=== PATIENT | female | born 1995 | race Hispanic/Latino ===

== ENCOUNTER 2019-04-24 14:37 | Emergency (ER) | payer BC ==
[~2019-04-24] VITALS: Ht 170.2 cm; Wt 108.9 kg
[2019-04-24] MEDS ORDERED: SODIUM CHLORIDE 0.9% 1000ML 1,000 ML IV STA (14:48)
[2019-04-24] MEDS ORDERED: ACETAMINOPHEN 325 MG TAB PO ONE (15:00)
[2019-04-24] MEDS ORDERED: KETOROLAC TROMETHAMINE 30 MG/ML VIAL IV ONE (15:00)
[2019-04-24] MEDS ORDERED: ONDANSETRON HCL INJ 2MG/ML 2ML 2 MG/ML VIAL IV ONE (15:00)
[2019-04-24] MEDS ORDERED: SODIUM CHLORIDE 0.9% 1000ML 1,000 ML ONE (15:05)
--- NOTE | 2019-04-24 15:17 | Diagnostic Imaging Report ---
EXAMINATION: CXR 2 VIEW - HOPD INDICATION: Shortness of breath COMPARISON: None FINDINGS: LINES/TUBES:None LUNGS:The lungs are well-inflated. No focal consolidation or pulmonary edema. PLEURA:No pleural effusion or pneumothorax. Lucency along the lateral left thoracic wall likely represents a skinfold. MEDIASTINUM:The cardiomediastinal silhouette appears normal in size and shape. BONES/SOFT TISSUES:No acute osseous injury. ABDOMEN:No free air under the diaphragm. IMPRESSION: No focal pneumonia or pulmonary edema. Signed by: Mikey Croft MD on 04/24/2019 3:14 PM
[2019-04-24 16:02] VITALS: BP 137/85
== END 2019-04-24 16:00 | disposition home or self-care (01) ==
LOC: FSED 14:37
DX: R07.89 Other chest pain (principal); B34.9 Viral infection, unspecified
CPT/HCPCS: 71046; 80053; 81003; 81025; 82553; 83518; 84484; 85025; 85379; 87400; 99284; J1885; J2405; J7030

== ENCOUNTER → 2019-06-11 | Day surgery (SDC) | payer BC ==
[~2019-06-11] MED LIST: ADDERALL 30 MG30 MG; ADR; DIM; FAMOTIDINE40 MG; FENTANYL CITRATE/PF 100MCG/2 ML INJ ONE; IODINE1 GM; LIDOCAINE HCL 2% LOCAL INJ 5 ML SDV VIAL INJ ONE; METHYLGUARD; MIDAZOLAM HCL 2 MG/2 ML VIAL ONE; OMEGA; OMEPRAZOLE40 MG; PROBIOTICS; PROPOFOL IV EMULSION 10 MG/ML 20 ML VIAL ONE; SUCRALFATE1 GM PO
--- OUTSIDE RECORDS SUMMARY | 2019-06-11 12:03 | XMS REPORT ---
Author Author [facility] Address Unknown Phone Unavailable Care Team Providers Care Appeals Representative Name Role Phone Neto AVILA Unavailable Unavailable KIMBERLY BHATTI Unavailable Unavailable Problems This patient has no known problems. Allergies, Adverse Reactions, Alerts This patient has no known allergies or adverse reactions. Medications This patient has no known medications. Results Test Description Test Time Test Comments Text Results Atomic Results Result Comments CXR 2 VIEW - HOPD 2019-04-24 15:10:00 [place] [address] Patient Name: JACOBO CORNELL MR #: [id number] : 1995 Age/Sex: 24/F Req #: [id number] Adm Physician: Ordered by: EYAD AVILA MD Report #: [id number] [facility] Room/Bed: Procedure: [id number] HOPD/CXR 2 VIEW - HOPD Exam Date: 04/24/19 Exam Time: 1444 REPORT STATUS: Signed EXAMINATION: CXR 2 VIEW - HOPD INDICATION: Shortness of breath COMPARISON: None FINDINGS: LINES/TUBES:None LUNGS:The lungs are well-inflated. No focal consolidation or pulmonary edema. PLEURA:No pleural effusion or pneumothorax. Lucency along the lateral left thoracic wall likely represents a skinfold. MEDIASTINUM:The cardiomediastinal silhouette appears normal in size and shape. BONES/SOFT TISSUES:No acute osseous injury. ABDOMEN:No free air under the diaphragm. IMPRESSION: No focal pneumonia or pulmonary edema. Signed by: Swetha Gee MD on 04/24/2019 3:14 PM Dictated By: SWETHA GEE MD 13 Transcribed By: OMER on 04/24/191513 COPY TO: EYAD AVILA MD URINALYSIS W/ MICROSCOPIC 2016-11-26 19:58:00 COLOR (BEAKER) (test ahzd=663) Yellow CLARITY (BEAKER) (test phyk=082) Hazy SPECIFIC GRAVITY UA (BEAKER) (test ydcz=790) 1.010 1.001-1.035 PH UA (BEAKER) (test vxoz=468) 6.0 5.0-8.0 PROTEIN UA (BEAKER) (test mbov=359) Negative Negative GLUCOSE UA (BEAKER) (test aehl=122) Negative Negative KETONES UA (BEAKER) (test fbtj=743) Negative Negative BILIRUBIN UA (BEAKER) (test njvm=889) Negative Negative BLOOD UA (BEAKER) (test ravg=670) Negative Negative NITRITE UA (BEAKER) (test bcye=055) Negative Negative LEUKOCYTE ESTERASE UA (BEAKER) (test szjx=980) Negative Negative UROBILINOGEN UA (BEAKER) (test mkew=305) 0.2 mg/dL 0.2-1.0 RBC UA-MANUAL (BEAKER) (test fske=4365) <5 /HPF WBC UA-MANUAL (BEAKER) (test ykwm=5501) <5 /HPF SQUAMOUS EPITHELIAL MANUAL (BEAKER) (test xvin=0504) <5 /HPF SOURCE(BEAKER) (test rdxh=3370) BASIC METABOLIC [id number] 19:56:00* Test Item Value Reference Range Comments SODIUM (BEAKER) (test qdnf=189) 141 meq/L 135-148 POTASSIUM (BEAKER) (test uadq=139) 3.6 meq/L 3.6-5.5 CHLORIDE (BEAKER) (test xlzp=999) 104 meq/L 98-106 CO2 (BEAKER) (test ulnm=978) 28 meq/L 24-32 BLOOD UREA NITROGEN (BEAKER) (test drdy=264) 10 mg/dL 10-26 CREATININE (BEAKER) (test dndp=705) 0.69 mg/dL 0.50-1.20 GLUCOSE RANDOM (BEAKER) (test oiem=913) 96 mg/dL 70-110 CALCIUM (BEAKER) (test dznt=468) 8.5 mg/dL 8.5-10.5 EGFR (BEAKER) (test wvfr=2298) 105 mL/min/1.73 sq m ESTIMATED GFR IS NOT ACCURATE CREATININE CLEARANCE IN PREDICTING GLOMERULAR FILTRATION RATE. ESTIMATED GFR IS NOT APPLICABLE FOR DIALYSIS PATIENTS. CBC W/PLT COUNT & AUTO [id number] 19:52:00* Test Item Value Reference Range Comments WHITE BLOOD CELL COUNT (BEAKER) (test levk=715) 3.2 10e3/ L 4.0-10.0 RED BLOOD CELL COUNT (BEAKER) (test dtyj=467) 4.85 10e6/ L 4.00-5.00 HEMOGLOBIN (BEAKER) (test gdkt=477) 11.5 g/dL 12.0-15.0 HEMATOCRIT (BEAKER) (test buos=015) 35.5 % 36.0-45.0 MEAN CORPUSCULAR VOLUME (BEAKER) (test nsik=014) 73.1 fL 82.0-99.0 MEAN CORPUSCULAR HEMOGLOBIN (BEAKER) (test xyco=815) 23.7 pg 27.0-33.0 MEAN CORPUSCULAR HEMOGLOBIN CONC (BEAKER) (test kdjr=907) 32.4 g/dL 32.0-36.0 RED CELL DISTRIBUTION WIDTH (BEAKER) (test wkdz=228) 14.8 % 10.3-14.2 PLATELET COUNT (BEAKER) (test ciwf=955) 164 10e3/ L 150-430 MEAN PLATELET VOLUME (BEAKER) (test etqz=411) 8.8 fL 6.5-10.5 NEUTROPHILS RELATIVE PERCENT (BEAKER) (test ulkv=719) 49 % LYMPHOCYTES RELATIVE PERCENT (BEAKER) (test mkdk=212) 37 % MONOCYTES RELATIVE PERCENT (BEAKER) (test itpx=671) 12 % EOSINOPHILS RELATIVE PERCENT (BEAKER) (test ixbx=778) 2 % BASOPHILS RELATIVE PERCENT (BEAKER) (test diai=316) 0 % NEUTROPHILS ABSOLUTE COUNT (BEAKER) (test xgpl=390) 1.57 10e3/ L 1.80-8.00 LYMPHOCYTES ABSOLUTE COUNT (BEAKER) (test sofe=194) 1.17 10e3/ L 1.48-4.50 MONOCYTES ABSOLUTE COUNT (BEAKER) (test iswq=730) 0.38 10e3/ L 0.00-1.30 EOSINOPHILS ABSOLUTE COUNT (BEAKER) (test nxeq=156) 0.06 10e3/ L 0.00-0.50 BASOPHILS ABSOLUTE COUNT (BEAKER) (test swnu=597) 0.01 10e3/ L 0.00-0.20 SCREEN, [id number] 19:51:00* Test Item Value Reference Range Comments TEST URINE (BEAKER) (test cbfu=722) Negative
[2019-06-11 14:40] VITALS: BP 105/67
--- NOTE | 2019-06-11 18:50 | Operative Report ---
DATE OF PROCEDURE: 06/11/2019 SURGEON: Paco Gibbons MD PROCEDURE PERFORMED: Esophagogastroduodenoscopy. PREOPERATIVE DIAGNOSES: Abdominal pain and dysphagia. POSTOPERATIVE DIAGNOSES: Status post gastric sleeve operation and gastritis. PREOPERATIVE MEDICATIONS: Consisted of IV sedation administered under MAC anesthesia. PROCEDURE IN DETAIL: Using [employer] video gastroscope was inserted in the patient's oropharynx, advanced to hypopharynx, and down to the esophagus. The mucosa present in the esophagus was normal and no strictures were seen. GE junction was at 37 cm. This led into a gastric sleeve, which extended down to about 45 cm. No evidence of any obstruction was seen. The sleeve opened up into the body and antrum, which contained evidence of gastritis, but no ulcerations. The biopsies were obtained in the antrum. The motility appeared to be okay. The pylorus was intact and patent. The endoscope was inserted into the duodenal bulb and postbulbar duodenum, which were found to be within normal limits. The endoscope was then withdrawn back up into the stomach, back up into the sleeve, back up into the GE junction, and again no inflammation was seen at the GE junction. The endoscope was then withdrawn back up into the hypopharynx, oropharynx, and out of the patient's mouth and the procedure was ended. Paco Gibbons MD SAF/MODL /[id number]
== END | disposition home or self-care (01) ==
LOC: OR 12:00
PROVIDERS: ATTEND Internal Medicine Gastroenterology
DX: R10.13 Epigastric pain (principal); R13.14 Dysphagia, pharyngoesophageal phase; F90.9 Attention-deficit hyperactivity disorder, unspecified type; Z01.812 Encounter for preprocedural laboratory examination; K21.0 Gastro-esophageal reflux disease with esophagitis; K44.9 Diaphragmatic hernia without obstruction or gangrene; Z98.84 Bariatric surgery status; Z80.0 Family history of malignant neoplasm of digestive organs; K29.70 Gastritis, unspecified, without bleeding
CPT/HCPCS: 43239; 81025; J2001; J2250; J2704; J3010

== ENCOUNTER 2020-12-29 15:10 | Emergency (ER) | payer BC ==
[~2020-12-29] VITALS: Ht 172.7 cm; Wt 105.8 kg
[~2020-12-29 15:10] MED LIST changes: -FENTANYL CITRATE/PF 100MCG/2 ML INJ ONE; -LIDOCAINE HCL 2% LOCAL INJ 5 ML SDV VIAL INJ ONE; -MIDAZOLAM HCL 2 MG/2 ML VIAL ONE; -PROPOFOL IV EMULSION 10 MG/ML 20 ML VIAL ONE
[2020-12-29] MEDS ORDERED: SODIUM CHLORIDE 0.9% 1000ML 1,000 ML IV STA (15:24)
[2020-12-29] MEDS ORDERED: KETOROLAC TROMETHAMINE 30 MG/ML VIAL IV STA (15:24)
[2020-12-29] MEDS ORDERED: SODIUM CHLORIDE 0.9% 1000ML 1,000 ML ONE (15:38)
[2020-12-29] MEDS ORDERED: KETOROLAC TROMETHAMINE 30 MG/ML VIAL ONE (15:38)
[2020-12-29 16:35] VITALS: BP 110/68
== END 2020-12-29 16:45 | disposition home or self-care (01) ==
LOC: FSED 15:26
DX: R10.30 Lower abdominal pain, unspecified (principal); K21.9 Gastro-esophageal reflux disease without esophagitis; F90.9 Attention-deficit hyperactivity disorder, unspecified type; Z98.84 Bariatric surgery status; F17.210 Nicotine dependence, cigarettes, uncomplicated
CPT/HCPCS: 74176; 80048; 80076; 81003; 81025; 85025; 96374; 99284; J1885; J7030

== ENCOUNTER 2021-01-10 18:12 | Emergency (ER) | payer BC ==
[~2021-01-10] VITALS: Ht 172.7 cm; Wt 106.1 kg
[2021-01-10] MEDS ORDERED: TYLENOL # 31 EA PO (20:52)
[2021-01-10 21:03] VITALS: BP 140/69
== END 2021-01-10 21:03 | disposition home or self-care (01) ==
LOC: FSED 18:29
DX: R68.84 Jaw pain (principal); M26.641 Arthritis of right temporomandibular joint; K21.9 Gastro-esophageal reflux disease without esophagitis; F90.9 Attention-deficit hyperactivity disorder, unspecified type; Z98.84 Bariatric surgery status
CPT/HCPCS: 70486; 99283

== ENCOUNTER 2021-02-18 13:30 | Emergency (ER) | payer BC ==
[~2021-02-18] VITALS: Ht 172.7 cm; Wt 115.7 kg
[~2021-02-18 13:30] MED LIST changes: +TYLENOL # 31 EA PO
[2021-02-18] MEDS ORDERED: FAMOTIDINE 20 MG/2 ML VIAL IV STA (13:47)
[2021-02-18] MEDS ORDERED: SODIUM CHLORIDE 0.9% 1000ML 1,000 ML IV STA (13:47)
[2021-02-18] MEDS ORDERED: IOPAMIDOL 370 MG/ML 200 ML INFUS..BTL INJ ONE (14:02)
[2021-02-18] MEDS ORDERED: SODIUM CHLORIDE 0.9% 50ML 50 ML ONE (14:02)
[2021-02-18] MEDS ORDERED: SODIUM CHLORIDE 0.9% 1000ML 1,000 ML ONE (14:05)
[2021-02-18] MEDS ORDERED: FAMOTIDINE 20 MG/2 ML VIAL IV ONE (14:05)
[2021-02-18] MEDS ORDERED: ONDANSETRON HCL INJ 2MG/ML 2ML 2 MG/ML VIAL IV STA (15:48)
[2021-02-18] MEDS ORDERED: ACETAMINOPHEN 325 MG TAB PO STA (15:48)
[2021-02-18] MEDS ORDERED: TYLENOL # 31 EA PO (15:58)
[2021-02-18] MEDS ORDERED: CIPRO500 MG PO (15:58)
[2021-02-18] MEDS ORDERED: FLAGYL500 MG PO (15:58)
[2021-02-18] MEDS ORDERED: ONDANSETRON ODT4 MG PO (15:58)
[2021-02-18] MEDS ORDERED: KETOROLAC TROMETHAMINE 30 MG/ML VIAL ONE (16:00)
[2021-02-18] MEDS ORDERED: ONDANSETRON HCL INJ 2MG/ML 2ML 2 MG/ML VIAL ONE (16:00)
[2021-02-18] MEDS ORDERED: KETOROLAC TROMETHAMINE 30 MG/ML VIAL IV STA (16:02)
[2021-02-18 16:15] VITALS: BP 128/74
[2021-02-18] MEDS ORDERED: MORPHINE SULFATE INJ 4 MG/ML INJ 1ML IV STA (16:26)
== END 2021-02-18 16:15 | disposition home or self-care (01) ==
LOC: FSED 13:41
DX: K51.00 Ulcerative (chronic) pancolitis without complications (principal)
CPT/HCPCS: 74177; 80048; 80076; 81003; 81025; 85025; 96374; 96375; 96376; 99283; J1885; J2405; J7030; Q9967

== ENCOUNTER 2025-04-23 12:16 | Emergency (ER) | payer BC, OTHER ==
[~2025-04-23] VITALS: Ht 170.2 cm; Wt 78.6 kg
[~2025-04-23 12:16] MED LIST changes: +CIPRO500 MG PO; +FLAGYL500 MG PO; +ONDANSETRON ODT4 MG PO
[2025-04-23 12:25] VITALS: PULSE 96; RESP 16; TEMP 98.2; O2SAT 100
[2025-04-23] MEDS ORDERED: PREDNISONE20 MG PO (12:55)
[2025-04-23] MEDS ORDERED: ZANAFLEX4 MG PO (12:55)
[2025-04-23] MEDS ORDERED: TYLENOL325 MG PO (12:55)
[2025-04-23] MEDS: ACETAMINOPHEN 325 MG TAB PO ONE (13:19)
[2025-04-23] MEDS: DEXAMETHASONE SOD PHOS INJ 4 MG/ML SDV IM ONE (13:19)
[2025-04-23] MEDS: IBUPROFEN 600 MG TAB PO ONE (13:19)
== END 2025-04-23 13:50 | disposition home or self-care (01) ==
LOC: FSED 12:28
DX: M54.2 Cervicalgia (principal); M25.512 Pain in left shoulder; M25.511 Pain in right shoulder; X50.9XXA Other and unspecified overexertion or strenuous movements or postures, initial encounter; Y92.89 Other specified places as the place of occurrence of the external cause; F90.9 Attention-deficit hyperactivity disorder, unspecified type; Z98.84 Bariatric surgery status
CPT/HCPCS: 72125; 81003; 81025; 99284; J1100